=== PATIENT | female | born 1990 | race Caucasian/White ===

== ENCOUNTER 2022-10-28 11:59 | Emergency (ER) | payer OTHER, SELFPAY ==
--- NOTE | ~2022-10-28 | XR_ITS ---
EXAMINATION: XR SOFT TISSUE NECK CLINICAL INDICATION: Feels like something in throat. COMPARISON: None TECHNIQUE: A single lateral view of the neck soft tissue is acquired. FINDINGS: Limited evaluation. Cervical spine and portion of the prevertebral soft tissue are not imaged. Visualized nasopharyngeal, oropharyngeal or hypopharyngeal airway is patent. Epiglottis appears normal. No evidence of radiopaque foreign body in the visualized neck. XR/XR soft tissue neck IMPRESSION: Limited evaluation. Prevertebral soft tissue is not completely included in the field of view. Visualized airway is well patent.
--- NOTE | ~2022-10-28 | XR_ITS ---
EXAMINATION: XR CHEST CLINICAL INFORMATION: Faint like something in the throat. COMPARISON: None TECHNIQUE: 2 views of the chest were obtained. FINDINGS: The mediastinal silhouette is stable and normal. The lungs are adequately expanded and clear. No evidence of pleural effusions are pneumothorax. Pulmonary vascularity is normal. Regional skeleton is intact. No evidence of free subdiaphragmatic air. XR/XR chest 2V IMPRESSION: No acute pulmonary process.
[2022-10-28 12:20] VITALS: PULSE 112; RESP 18; TEMP 36.6; O2SAT 95; BMI 32.5
--- NOTE | 2022-10-28 12:22 | ED_ITS ---
HPI - General Adult General Chief complaint: General Medical <KIRILL Cerda - Last Filed: 10/28/22 17:52> Stated complaint: Something in throat? <KIRILL Cerda - Last Filed: 10/28/22 17:52> Time Seen by Provider: 10/28/22 14:55 <KIRILL Cerda - Last Filed: 10/28/22 17:52> Source: patient <Lashon Contreras NP - Last Filed: 10/28/22 17:18> Mode of arrival: ambulatory <Lashon Contreras NP - Last Filed: 10/28/22 17:18> Limitations: no limitations <Lashon Contreras NP - Last Filed: 10/28/22 17:18> History of Present Illness HPI narrative: 32 yo female Who is not willing to provide any history presents with complaints of body pain, sore throat. per report from triage nurse the patient was running in our traffic today. Patient with agitation, bizarre behavior and triage. Patient did admit to triage nurse that she had alcohol last night. Patient currently is denying any alcohol use, substance use. Unable to assess additional HPI is patient is quite agitated, restless, refusing to answer all questions <Lashon Contreras NP - Last Filed: 10/28/22 17:18> Related Data Allergies/adverse reactions: Allergies Allergy/AdvReac Type Severity Reaction Status Date / Time No Known Allergies Allergy Verified 10/28/22 12:19 <KIRILL Cerda - Last Filed: 10/28/22 17:52> Review of Systems Review of Systems: Yes Other (unobtainable d/t patient being uncooperative ) <Lashon Contreras NP - Last Filed: 10/28/22 17:18> [facility] Past Medical History Attestation statement: The following information was validated with the patient. <Lashon Contreras NP - Last Filed: 10/28/22 17:18> Source: old records reviewed and nursing notes reviewed <Lashon Contreras NP - Last Filed: 10/28/22 17:18> Social History Social History: Social History Advance Directives: No Advance Directives Information Provided: No <KIRILL Cerda - Last Filed: 10/28/22 17:52> Physical Exam ED Vital Signs: Vital Signs - 24 hr 10/28/22 12:20 10/28/22 17:29 Temperature 97.8 F 97.2 F Pulse Rate 112 H 74 Respiratory Rate 18 16 Blood Pressure 140/72 H Pulse Oximetry 95 97 Oxygen Delivery Method Room Air Room Air BMI result Body Mass Index 32.5 <KIRILL Cerda - Last Filed: 10/28/22 17:52> Vital Signs - 24 hr 10/28/22 12:20 10/28/22 17:29 Temperature 97.8 F 97.2 F Pulse Rate 112 H 74 Respiratory Rate 18 16 Blood Pressure 140/72 H Pulse Oximetry 95 97 Oxygen Delivery Method Room Air Room Air BMI result Body Mass Index 32.5 <Lashon Contreras NP - Last Filed: 10/28/22 17:18> Const Other: +agitated, not cooperative, refuses to answer questions <Lashon Contreras MERCHANDISE PLANNING MANAGER - Last Filed: 10/28/22 17:18> General: alert and anxious <Lashon Contreras NP - Last Filed: 10/28/22 17:18> HENMT Head: Yes normal to inspection <Lashon Contreras NP - Last Filed: 10/28/22 17:18> Ears: hearing grossly normal bilaterally and TM's normal bilaterally <Lashon Contreras NP - Last Filed: 10/28/22 17:18> Throat: Yes posterior oropharynx normal, Yes tonsils normal and Yes uvula midline <Lashon Contreras MERCHANDISE PLANNING MANAGER - Last Filed: 10/28/22 17:18> Eyes General: appearance normal, both eyes and all related structures <Lashon Contreras NP - Last Filed: 10/28/22 17:18> Pupils: Equal, round and reactive pupils present <Lashon Contreras NP - Last Filed: 10/28/22 17:18> Neck Neck: Yes normal visual inspection, Yes full ROM, Yes no lymphadenopathy and Yes no meningeal signs <Lashon Contreras NP - Last Filed: 10/28/22 17:18> Chest Chest palpation & inspection: normal inspection of the chest <Lashon Contreras MERCHANDISE PLANNING MANAGER - Last Filed: 10/28/22 17:18> Resp Effort & Inspection: normal respiratory effort <Lashon Contreras MERCHANDISE PLANNING MANAGER - Last Filed: 10/28/22 17:18> Auscultation: clear to auscultation bilaterally <Lashon Contreras MERCHANDISE PLANNING MANAGER - Last Filed: 10/28/22 17:18> Cardio Rate: regular rate <Lashon Contreras, MERCHANDISE PLANNING MANAGER - Last Filed: 10/28/22 17:18> Rhythm: regular rhythm <Lashon Contreras, MERCHANDISE PLANNING MANAGER - Last Filed: 10/28/22 17:18> Peripheral pulses: Peripheral pulses 2+ throughout <Lashon Contreras, MERCHANDISE PLANNING MANAGER - Last Filed: 10/28/22 17:18> GI Inspection: Yes normal to inspection <Lashon Contreras MERCHANDISE PLANNING MANAGER - Last Filed: 10/28/22 17:18> Palpation (GI): Soft to palpation and nontender <Lashon Contreras, MERCHANDISE PLANNING MANAGER - Last Filed: 10/28/22 17:18> General: Yes no CVA tenderness <Lashon Contreras MERCHANDISE PLANNING MANAGER - Last Filed: 10/28/22 17:18> Back/Spine/Pelvis Back: no CVA tenderness <Lashon Contreras, MERCHANDISE PLANNING MANAGER - Last Filed: 10/28/22 17:18> Thoracic/Lumbar Spine: thoracic and lumbar spine normal to inspection <Lashon Contreras, MERCHANDISE PLANNING MANAGER - Last Filed: 10/28/22 17:18> Skin General skin exam: no rashes or lesions noted <Lashon Contreras, MERCHANDISE PLANNING MANAGER - Last Filed: 10/28/22 1 7:18> Neuro General: moves all extremities and no meningeal signs <Lashon Contreras, MERCHANDISE PLANNING MANAGER - Last Filed: 10/28/22 17:18> Cranial nerves: Yes Equal, round and reactive pupils present, Yes Normal facial strength present and Yes Midline tongue present <Lashon Contreras, MERCHANDISE PLANNING MANAGER - Last Filed: 10/28/22 17:18> Cognition (Neuro): normal cognition <Lashonriley Contreras NP - Last Filed: 10/28/22 17:18> Extrem General: Yes normal to inspection, Yes no pedal edema and Yes no calf tenderness <Lashon Contreras NP - Last Filed: 10/28/22 17:18> Course Course Course Narrative: SUYAPA-12:25pm - 32-year-old female who is dependent on cocaine reports she uses daily who is presenting to the ER intoxicated reporting she feels like something is stuck in her throat that started few hours prior to arrival. Apparently police said that she was acting erratic and running in and out of traffic. She reports she is interested in detox. Denies any fevers, cough, chest pain, abdominal pain, nausea/vomiting, dysuria, diarrhea, recent falls or trauma or any other symptoms complaints or concerns at this time. Plan: Will obtain labs, UA, UHCG, drugs of abuse screen, chest x-ray and throat x-ray along with the care team consult for possible detox. Patient will be sent back to the waiting room she is stable at this time. <KIRILL Cerda - Last Filed: 10/28/22 17:52> Reevaluation(s) Reevaluation #1: + for PCP, +cocaine, +THC. additional labs show mild leukocytosis ot herwise unremarkable. Patient is intoxicated. Patient will need to be re- evaluated and few hours determine if is safe for her to be discharged home. Will order care team consultation the meantime. <Lashon Contreras NP - Last Filed: 10/28/22 17:18> Reevaluation #2: 1800- Sign out to [facility] pending re-evaluation. Placed in physician observation pending disposition, <Lashon Contreras NP - Last Filed: 10/28/22 17:18> Medical Decision Making Medical Decision Making MDM Narrative: 32-year-old female with a known medical history here with complaints of body pain all over and sore throat. Patient also complaining that she is having difficulty swallowing. Patient is tolerating her secretions with no difficulty. Her Posterior pharynx is normal in appearance. Tonsils are normal. Uvula midline. Patient quite agitated, quite anxious, quite restless. Vague reports of patient running in and out of traffic. Not really willing to participate in an exam. Patient denies any substance use or SI Will obtain labs, toxicology report, COVID screen CXR and soft tissue x-ray ordered from triage Once medically cleared will need to be observed, monitored until clinically sober and possible CARE team consultation. We need more information from the pat fede and hopefully she can provide this when she is more cooperative. <Lashon Contreras NP - Last Filed: 10/28/22 17:18> Differential Diagnosis Differential Diagnoses: The differential diagnosis associated with the presentation includes <Lashon Contreras NP - Last Filed: 10/28/22 17:18> viral syndrome, rhabdomyolysis, polysubstance use <Lashon Contreras NP - Last Filed: 10/28/22 17:18> Lab Data MDM Lab Attestation statement: I reviewed the patient's lab results. <Lashon Contreras NP - Last Filed: 10/28/22 17:18> Result Diagrams: 10/28/22 13:25 10/28/22 13:25 <KIRILL Cerda - Last Filed: 10/28/22 17:52> Labs: Lab Results 10/28/22 10/28/22 10/28/22 Range/Units 13:25 13:25 13:25 WBC 12.6 H (4.8-10.8) X10*3/uL RBC 4.37 (4.20-5.50) X10*6/uL Hgb 14.3 (12.0-16.0) g/dl Hct 40.3 (37.0-47.0) % MCV 92.2 (80.0-98.0) fL MCH 32.7 (27.0-33.0) pg MCHC 35.5 H (31.0-35.0) g/dl RDW 13.0 (11.0-16.0) % Plt Count 416 H (160-400) X10*3/uL MPV 8.9 L (9.4-12.3) fL Immature Gran % (Auto) 0.3 (0.0-0.4) % Neut % (Auto) 72.7 (45-73) % Lymph % (Auto) 18.2 L (20-40) % Anderson % (Auto) 7.7 (2-11) % Eos % (Auto) 0.5 (0-4) % Baso % (Auto) 0.6 (0-2) % Lymph # (Auto) 2.3 (1.2-4.9) X10*3/uL Anderson # (Auto) 1.0 (0.1-1.2) X10*3/uL Eos # (Auto) 0.1 (0.0-0.4) X10*3/uL Baso # (Auto) 0.1 (0.0-0.2) X10*3/uL Abs Immat Gran (auto) 0.04 H (0.00-0.03) X10*3/uL Absolute Neuts (auto) 9.2 H (2.0-8.3) x10*3/uL Absolute Nucleated RBC 0.000 (0.0-0.012) X10*3/uL Nucleated RBC % (auto) 0.0 (0.0-0.2) /100WBC Sodium 140 (135-145) mmol/L Potassium 4.5 (3.3-5.1) mmol/L Chloride 106 (96-108) mmol/L Carbon Dioxide 20 L (22-29) mmol/L Anion Gap 19 (12-20) BUN 15 (9-16) mg/dL Creatinine 0.75 (0.5-1.4) mg/dL Estim Creat Clear Calc 89.0 Estimated GFR > 60 Random Glucose 115 (60-115) mg/dL Calcium 9.5 (8.4-10.2) mg/dL Magnesium 2.2 (1.6-2.6) mg/dL Total Bilirubin 0.8 (0.0-1.0) mg/dL AST 24 (5-31) U/L ALT 19 (0-31) U/L Alkaline Phosphatase 84 (39-117) U/L Total Creatine Kinase 338 H (26-140) U/L Total Protein 7.5 (6.5-8.0) g/dL Albumin 4.3 (3.5-5.0) g/dL Lipase 7 L (8-78) U/L Beta HCG, Quant < 2 mIU/mL Urine Color Urine Appearance Urine pH (5.0-9.0) Ur Specific Hammond (1.005-1.025) Urine Protein (Neg-Trace) mg/dL Urine Glucose (UA) (Negative) mg/dL Urine Ketones (Negative) mg/dL Urine Blood (Negative) Urine Nitrite (Negative) Ur Leukocyte Esterase (Negative) Urine RBC (0-2) /HPF Urine WBC (0-5) /HPF Ur Squamous Epith Cells (0-2) /HPF Urine Bacteria (None Seen) Hyaline Casts (0-2) /LPF Urine Opiates Screen (Not Detect) Urine Fentanyl Screen (Not Detect) Ur Barbiturates Screen (Not Detect) Ur Phencyclidine Scrn (Not Detect) Ur Amphetamines Screen (Not Detect) U Benzodiazepines Scrn (Not Detect) Urine Cocaine Screen (Not Detect) U Marijuana (THC) Screen (Not Detect) Ethyl Alcohol < 10 mg/dL Influenza Type A (PCR) NEGATIVE (Negative) Influenza Type B (PCR) NEGATIVE (Negative) RSV RNA Qual (PCR) NEGATIVE (Negative) SARS-CoV-2 RNA (RT-PCR) NEGATIVE (Negative) 10/28/22 10/28/22 Range/Units 13:30 13:30 WBC (4.8-10.8) X10*3/uL RBC (4.20-5.50) X10*6/uL Hgb (12.0-16.0) g/dl Hct (37.0-47.0) % MCV (80.0-98.0) fL MCH (27.0-33.0) pg MCHC (31.0-35.0) g/dl RDW (11.0-16.0) % Plt Count (160-400) X10*3/uL MPV (9.4-12.3) fL Immature Gran % (Auto) (0.0-0.4) % Neut % (Auto) (45-73) % Lymph % (Auto) (20-40) % Anderson % (Auto) (2-11) % Eos % (Auto) (0-4) % Baso % (Auto) (0-2) % Lymph # (Auto) (1.2-4.9) X10*3/uL Anderson # (Auto) (0.1-1.2) X10*3/uL Eos # (Auto) (0.0-0.4) X10*3/uL Baso # (Auto) (0.0-0.2) X10*3/uL Abs Immat Gran (auto) (0.00-0.03) X10*3/uL Absolute Neuts (auto) (2.0-8.3) x10*3/uL Absolute Nucleated RBC (0.0-0.012) X10*3/uL Nucleated RBC % (auto) (0.0-0.2) /100WBC Sodium (135-145) mmol/L Potassium (3.3-5.1) mmol/L Chloride (96-108) mmol/L Carbon Dioxide (22-29) mmol/L Anion Gap (12-20) BUN (9-16) mg/dL Creatinine (0.5-1.4) mg/dL Estim Creat Clear Calc Estimated GFR Random Glucose (60-115) mg/dL Calcium (8.4-10.2) mg/dL Magnesium (1.6-2.6) mg/dL Total Bilirubin (0.0-1.0) mg/dL AST (5-31) U/L ALT (0-31) U/L Alkaline Phosphatase (39-117) U/L Total Creatine Kinase (26-140) U/L Total Protein (6.5-8.0) g/dL Albumin (3.5-5.0) g/dL Lipase (8-78) U/L Beta HCG, Quant mIU/mL Urine Color Dark Yellow Urine Appearance Cloudy Urine pH 5.5 (5.0-9.0) Ur Specific Hammond >= 1.030 H (1.005-1.025) Urine Protein 100 (2+) H (Neg-Trace) mg/dL Urine Glucose (UA) Negative (Negative) mg/dL Urine Ketones 15 (Negative) mg/dL Urine Blood Negative (Negative) Urine Nitrite Negative (Negative) Ur Leukocyte Esterase Trace H (Negative) Urine RBC 3-5 H (0-2) /HPF Urine WBC 0-5 (0-5) /HPF Ur Squamous Epith Cells 6-10 (0-2) /HPF Urine Bacteria None Seen (None Seen) Hyaline Casts 3-5 (0-2) /LPF Urine Opiates Screen Not Detected (Not Detect) Urine Fentanyl Screen Not Detected (Not Detect) Ur Barbiturates Screen Not Detected (Not Detect) Ur Phencyclidine Scrn POSITIVE H (Not Detect) Ur Amphetamines Screen Not Detected (Not Detect) U Benzodiazepines Scrn Not Detected (Not Detect) Urine Cocaine Screen POSITIVE H (Not Detect) U Marijuana (THC) Screen POSITIVE H (Not Detect) Ethyl Alcohol mg/dL Influenza Type A (PCR) (Negative) Influenza Type B (PCR) (Negative) RSV RNA Qual (PCR) (Negative) SARS-CoV-2 RNA (RT-PCR) (Negative) <KIRILL Cerda - Last Filed: 10/28/22 17:52> Lab Results 10/28/22 10/28/22 10/28/22 Range/Units 13:25 13:25 13:25 WBC 12.6 H (4.8-10.8) X10*3/uL RBC 4.37 (4.20-5.50) X10*6/uL Hgb 14.3 (12.0-16.0) g/dl Hct 40.3 (37.0-47.0) % MCV 92.2 (80.0-98.0) fL MCH 32.7 (27.0-33.0) pg MCHC 35.5 H (31.0-35.0) g/dl RDW 13.0 (11.0-16.0) % Plt Count 416 H (160-400) X10*3/uL MPV 8.9 L (9.4-12.3) fL Immature Gran % (Auto) 0.3 (0.0-0.4) % Neut % (Auto) 72.7 (45-73) % Lymph % (Auto) 18.2 L (20-40) % Anderson % (Auto) 7.7 (2-11) % Eos % (Auto) 0.5 (0-4) % Baso % (Auto) 0.6 (0-2) % Lymph # (Auto) 2.3 (1.2-4.9) X10*3/uL Anderson # (Auto) 1.0 (0.1-1.2) X10*3/uL Eos # (Auto) 0.1 (0.0-0.4) X10*3/uL Baso # (Auto) 0.1 (0.0-0.2) X10*3/uL Abs Immat Gran (auto) 0.04 H (0.00-0.03) X10*3/uL Absolute Neuts (auto) 9.2 H (2.0-8.3) x10*3/uL Absolute Nucleated RBC 0.000 (0.0-0.012) X10*3/uL Nucleated RBC % (auto) 0.0 (0.0-0.2) /100WBC Sodium 140 (135-145) mmol/L Potassium 4.5 (3.3-5.1) mmol/L Chloride 106 (96-108) mmol/L Carbon Dioxide 20 L (22-29) mmol/L Anion Gap 19 (12-20) BUN 15 (9-16) mg/dL Creatinine 0.75 (0.5-1.4) mg/dL Estim Creat Clear Calc 89.0 Estimated GFR > 60 Random Glucose 115 (60-115) mg/dL Calcium 9.5 (8.4-10.2) mg/dL Magnesium 2.2 (1.6-2.6) mg/dL Total Bilirubin 0.8 (0.0-1.0) mg/dL AST 24 (5-31) U/L ALT 19 (0-31) U/L Alkaline Phosphatase 84 (39-117) U/L Total Creatine Kinase 338 H (26-140) U/L Total Protein 7.5 (6.5-8.0) g/dL Albumin 4.3 (3.5-5.0) g/dL Lipase 7 L (8-78) U/L Beta HCG, Quant < 2 mIU/mL Urine Color Urine Appearance Urine pH (5.0-9.0) Ur Specific Hammond (1.005-1.025) Urine Protein (Neg-Trace) mg/dL Urine Glucose (UA) (Negative) mg/dL Urine Ketones (Negative) mg/dL Urine Blood (Negative) Urine Nitrite (Negative) Ur Leukocyte Esterase (Negative) Urine RBC (0-2) /HPF Urine WBC (0-5) /HPF Ur Squamous Epith Cells (0-2) /HPF Urine Bacteria (None Seen) Hyaline Casts (0-2) /LPF Urine Opiates Screen (Not Detect) Urine Fentanyl Screen (Not Detect) Ur Barbiturates Screen (Not Detect) Ur Phencyclidine Scrn (Not Detect) Ur Amphetamines Screen (Not Detect) U Benzodiazepines Scrn (Not Detect) Urine Cocaine Screen (Not Detect) U Marijuana (THC) Screen (Not Detect) Ethyl Alcohol < 10 mg/dL Influenza Type A (PCR) NEGATIVE (Negative) Influenza Type B (PCR) NEGATIVE (Negative) RSV RNA Qual (PCR) NEGATIVE (Negative) SARS-CoV-2 RNA (RT-PCR) NEGATIVE (Negative) 10/28/22 10/28/22 Range/Units 13:30 13:30 WBC (4.8-10.8) X10*3/uL RBC (4.20-5.50) X10*6/uL Hgb (12.0-16.0) g/dl Hct (37.0-47.0) % MCV (80.0-98.0) fL MCH (27.0-33.0) pg MCHC (31.0-35.0) g/dl RDW (11.0-16.0) % Plt Count (160-400) X10*3/uL MPV (9.4-12.3) fL Immature Gran % (Auto) (0.0-0.4) % Neut % (Auto) (45-73) % Lymph % (Auto) (20-40) % Anderson % (Auto) (2-11) % Eos % (Auto) (0-4) % Baso % (Auto) (0-2) % Lymph # (Auto) (1.2-4.9) X10*3/uL Anderson # (Auto) (0.1-1.2) X10*3/uL Eos # (Auto) (0.0-0.4) X10*3/uL Baso # (Auto) (0.0-0.2) X10*3/uL Abs Immat Gran (auto) (0.00-0.03) X10*3/uL Absolute Neuts (auto) (2.0-8.3) x10*3/uL Absolute Nucleated RBC (0.0-0.012) X10*3/uL Nucleated RBC % (auto) (0.0-0.2) /100WBC Sodium (135-145) mmol/L Potassium (3.3-5.1) mmol/L Chloride (96-108) mmol/L Carbon Dioxide (22-29) mmol/L Anion Gap (12-20) BUN (9-16) mg/dL Creatinine (0.5-1.4) mg/dL Estim Creat Clear Calc Estimated GFR Random Glucose (60-115) mg/dL Calcium (8.4-10.2) mg/dL Magnesium (1.6-2.6) mg/dL Total Bilirubin (0.0-1.0) mg/dL AST (5-31) U/L ALT (0-31) U/L Alkaline Phosphatase (39-117) U/L Total Creatine Kinase (26-140) U/L Total Protein (6.5-8.0) g/dL Albumin (3.5-5.0) g/dL Lipase (8-78) U/L Beta HCG, Quant mIU/mL Urine Color Dark Yellow Urine Appearance Cloudy Urine pH 5.5 (5.0-9.0) Ur Specific Hammond >= 1.030 H (1.005-1.025) Urine Protein 100 (2+) H (Neg-Trace) mg/dL Urine Glucose (UA) Negative (Negative) mg/dL Urine Ketones 15 (Negative) mg/dL Urine Blood Negative (Negative) Urine Nitrite Negative (Negative) Ur Leukocyte Esterase Trace H (Negative) Urine RBC 3-5 H (0-2) /HPF Urine WBC 0-5 (0-5) /HPF Ur Squamous Epith Cells 6-10 (0-2) /HPF Urine Bacteria None Seen (None Seen) Hyaline Casts 3-5 (0-2) /LPF Urine Opiates Screen Not Detected (Not Detect) Urine Fentanyl Screen Not Detected (Not Detect) Ur Barbiturates Screen Not Detected (Not Detect) Ur Phencyclidine Scrn POSITIVE H (Not Detect) Ur Amphetamines Screen Not Detected (Not Detect) U Benzodiazepines Scrn Not Detected (Not Detect) Urine Cocaine Screen POSITIVE H (Not Detect) U Marijuana (THC) Screen POSITIVE H (Not Detect) Ethyl Alcohol mg/dL Influenza Type A (PCR) (Negative) Influenza Type B (PCR) (Negative) RSV RNA Qual (PCR) (Negative) SARS-CoV-2 RNA (RT-PCR) (Negative) <Lashon Contreras NP - Last Filed: 10/28/22 17:18> Independent Interpretation I performed an independent interpretation of an: Plain X-Ray <Lashon Contreras NP - Last Filed: 10/28/22 17:18> Interpretation: I independently reviewed the chest x-ray and soft tissue neck x-ray and agree with radiologist's report <Lashon Contreras NP - Last Filed: 10/28/22 17:18> Radiology Impression Discussion of test interpretation with radiology: I have reviewed the radiologist's reading. <Lashon Contreras NP - Last Filed: 10/28/22 17:18> Radiologist Impression: [address] [address] XRay Report Signed Patient: Mariaa Newton MR#: [id number] : 1990 Acct:[id number] Age/Sex: 32 / F ADM Date: 10/28/22 Loc: .ED Attending Dr: Ordering Physician: Carla Kim Date of Service: 10/28/22 Procedure(s): XR chest 2V Accession Number(s): [id number] cc: Carla Kim~ EXAMINATION: XR CHEST CLINICAL INFORMATION: Faint like something in the throat. COMPARISON: None TECHNIQUE: 2 views of the chest were obtained. FINDINGS: The mediastinal silhouette is stable and normal. The lungs are adequately expanded and clear. No evidence of pleural effusions are pneumothorax. Pulmonary vascularity is normal. Regional skeleton is intact. No evidence of free subdiaphragmatic air. XR/XR chest 2V IMPRESSION: No acute pulmonary process. Launch?Image [address] [address] XRay Report Signed Patient: Mariaa Newton MR#: [id number] : 1990 Acct:[id number] Age/Sex: 32 / F ADM Date: 10/28/22 Loc: [facility].ED Attending Dr: Ordering Physician: Carla Kim Date of Service: 10/28/22 Procedure(s): XR soft tissue neck Accession Number(s): [id number] cc: Carla Kim~ EXAMINATION: XR SOFT TISSUE NECK CLINICAL INDICATION: Feels like something in throat. COMPARISON: None TECHNIQUE: A single lateral view of the neck soft tissue is acquired.? FINDINGS: Limited evaluation. Cervical spine and portion of the prevertebral soft tissue are not imaged. Visualized nasopharyngeal, oropharyngeal or hypopharyngeal airway is patent. Epiglottis appears normal. No evidence of radiopaque foreign body in the visualized neck. XR/XR soft tissue neck IMPRESSION: Limited evaluation. Prevertebral soft tissue is not completely included in the field of view. Visualized airway is well patent. <Lashon Contreras NP - Last Filed: 10/28/22 17:18> Discharge Plan Discharge Clinical Impression: Polysubstance use disorder <KIRILL Cerda - Last Filed: 10/28/22 17:52> Patient Disposition: Home, Self-Care <KIRILL Cerda - Last Filed: 10/28/22 17:52> Instructions: Polysubstance Abuse (ED) <KIRILL Cerda - Last Filed: 10/28/22 17:52> Referrals: Physician,Unknown J [Primary Care Provider] - 2 days (your pcp) <KIRILL Cerda - Last Filed: 10/28/22 17:52>
[2022-10-28 13:37] LABS: MANUAL DIFF FLAG NO
[2022-10-28 13:38] LABS: Basophils Absolute Auto 0.1 X10*3/uL (0.0-0.2); Basophils Percent Auto 0.6 % (0-2); Eosinophils Absolute Auto 0.1 X10*3/uL (0.0-0.4); Eosinophils Percent Auto 0.5 % (0-4); Hematocrit 40.3 % (37.0-47.0); Hemoglobin 14.3 g/dl (12.0-16.0); Imm Gran Abs Auto 0.04 X10*3/uL (0.00-0.03); Imm Gran Pct Auto 0.3 % (0.0-0.4); Lymphocytes Absolute Auto 2.3 X10*3/uL (1.2-4.9); Lymphocytes Percent Auto 18.2 % (20-40); Mean Corpuscular HGB Conc 35.5 g/dl (31.0-35.0); Mean Corpuscular Hemoglobin 32.7 pg (27.0-33.0); Mean Corpuscular Volume 92.2 fL (80.0-98.0); Mean Platelet Volume 8.9 fL (9.4-12.3); Monocytes Percent Auto 7.7 % (2-11); Neutrophils Absolute Auto 9.2 x10*3/uL (2.0-8.3); Neutrophils Percent Auto 72.7 % (45-73); Platelet Count 416 X10*3/uL (160-400); Red Blood Count 4.37 X10*6/uL (4.20-5.50); White Blood Count 12.6 X10*3/uL (4.8-10.8)
[2022-10-28 13:39] LABS: Appearance Urine Cloudy; Color Urine Dark Yellow; Glucose Urine UA Negative (Negative); Leukocyte Esterase Urine Trace (Negative); Nitrite Urine Negative (Negative); PH 5.5 (5.0-9.0); Specific Gravity - Urine >= 1.030 (1.005-1.025); UMIC TRIGGER UACC YES; Urine Blood Negative (Negative); Urine Ketones 15 mg/dL (Negative); Urine Protein 100 (2+) mg/dL (Neg-Trace)
[2022-10-28 13:48] LABS: Bacteria Urine None Seen (None Seen); WBC Urine 0-5 /HPF (0-5)
[2022-10-28 13:57] LABS: Amphetamine Screen Urine Not Detected (Not Detect); Barbiturates, Urine Not Detected (Not Detect); Benzodiazepines Screen Urine Not Detected (Not Detect); Cannabinoid Screen Urine POSITIVE (Not Detect); Cocaine Screen Urine POSITIVE (Not Detect); Fentanyl, urine Not Detected (Not Detect); Opiate Screen Urine Not Detected (Not Detect); Phencyclidine Screen Urine POSITIVE (Not Detect)
--- NOTE | 2022-10-28 14:00 | PC.NURSE ---
pt brought in from waiting room, labs complete, resting quietly on stretcher, pending ED provider.
[2022-10-28 14:10] LABS: Alanine Aminotransferase 19 U/L (0-31); Albumin Level 4.3 g/dL (3.5-5.0); Alkaline Phosphatase 84 U/L (39-117); Anion Gap 19 (12-20); Aspartate Amino Transferase 24 U/L (5-31); Bilirubin Total 0.8 mg/dL (0.0-1.0); Blood Urea Nitrogen 15 mg/dL (9-16); Calcium 9.5 mg/dL (8.4-10.2); Carbon Dioxide 20 mmol/L (22-29); Chloride 106 mmol/L (96-108); Estimated Glomerular Filt Rate > 60; Glucose Random 115 mg/dL (60-115); Lipase 7 U/L (8-78); Magnesium 2.2 mg/dL (1.6-2.6); Potassium 4.5 mmol/L (3.3-5.1); Sodium 140 mmol/L (135-145); Total Protein 7.5 g/dL (6.5-8.0)
[2022-10-28 14:11] LABS: HCG Quantitative < 2 mIU/mL
[2022-10-28 14:18] LABS: Ethanol < 10 mg/dL
[2022-10-28 14:44] LABS: Influenza A PCR NEGATIVE (Negative); Influenza B PCR NEGATIVE (Negative); Resp Syncy Virus RNA Qual PCR NEGATIVE (Negative); SARS COV2 PCR INHOUSE NEGATIVE (Negative)
--- NOTE | 2022-10-28 15:18 | PC.NURSE ---
provider at bedside, pt became increasingly agitated w questioned, declined any mediations, now resting quietly, RR 16, resp even and unlabored..
[2022-10-28 17:29] VITALS: BP 140/72; PULSE 74; RESP 16; TEMP 36.2; O2SAT 97
--- NOTE | 2022-10-28 17:53 | MHC.RECOVSUP ---
? Reason for consult:Recovery Support o Current location: ED22 o Identified substance use concern: LUIS ? Additional information:?Patient refused to speak with a [employer] Cl[employer]ber at this time
[2022-10-28] MEDS: Penicillin G Benzathine 2,400,000 UNIT/4 ML SYRINGE 2400000 UNIT IM (18:21)
--- NOTE | 2022-10-28 18:24 | PC.NURSE ---
pt medicated with Bicillin LA 2ml given in left and right gluteus zelda well tolerated by pt
--- NOTE | 2022-10-28 19:07 | PC.NURSE ---
pt sleeping, vss, RR even and unlabored.
[2022-10-29 04:15] LABS: Syphilis Screen Nonreactive (Nonreactive)
== END 2022-10-28 19:41 | disposition home or self-care (01) ==
PROVIDERS: Nurse Practitioner Family; Physician Assistant Medical; Emergency Provider Emergency Medicine Emergency Medical Services
DX: R09.89 Other specified symptoms and signs involving the circulatory and respiratory systems (principal); R06.02 Shortness of breath; M79.10 Myalgia, unspecified site; R13.10 Dysphagia, unspecified; F14.10 Cocaine abuse, uncomplicated; Z20.822 Contact with and (suspected) exposure to COVID-19; Z20.828 Contact with and (suspected) exposure to other viral communicable diseases; Z79.899 Other long term (current) drug therapy
CPT/HCPCS: 0241U; 70360; 71046; 80053; 80307; 81001; 82077; 82550; 83690; 83735; 84702; 85025; 86780; 99283; J0561